=== PATIENT | female | born 1995 | race Caucasian/White ===

== ENCOUNTER 2018-05-06 17:38 | Inpatient (IN) | payer BC ==
[2018-05-06] MEDS ORDERED: Acetaminophen TAB* 325 MG PO PRN (23:33)
[2018-05-06] MEDS ORDERED: Ibuprofen TAB* 600 MG PO PRN (23:33)
[2018-05-06] MEDS ORDERED: Dibucaine 1% 28.35 GM TUBE PR PRN (23:33)
[2018-05-06] MEDS ORDERED: Witch Hazel PAD* JAR TOPICAL PRN (23:33)
[2018-05-06] MEDS ORDERED: Glycerin ADULT SUPP PR PRN (23:33)
--- NOTE | 2018-05-06 23:47 | HP ---
General Information - Reason for Visit SROM with contractions - General Information Maternal Age: 23 Grav: 2 Para: 1 SAB: 0 IEA: 0 Estimated Due Date: 05/09/18 Determined By: LMP Maternal Blood Type and Rh: A Positive - Results this Serology/RPR Result: Non-Reactive Rubella Result: Immune HBsAg Result: Negative HIV Result: Negative GBS Culture Result: Negative Past Medical History Delivery History: Hx Uncomplicated Vaginal Delivery Pertinent Past Medical History: Non-Contributory - migraines Pertinent Past Surgical History: See Records - repair of broken ankle Pertinent Family History: Non-Contributory - Antepartal Records Antepartal Records: Reviewed, Uncomplicated Review of Systems Constitutional: Comfortable CV Complaint: No Respiratory: Shortness of Breath: No Gastrointestinal: No Nausea/Vomiting, Normal Bowel Movement Genitourinary: Leaking Fluid, No Dysuria, No Bleeding Musculoskeletal: No Epigastric Pain, Contractions Neurological: No Headache, No Visual Changes Movement: Normal Exam Allergies/Adverse Reactions: Allergies No Known Allergies Allergy (Verified 05/06/18 18:10) T-98.7, P-75, R-18, O2-100%, BP-114/72 - Measurements Height: 5 ft 7 in Weight: 77.111 kg Weight in lbs: 170.172129 Body Mass Index (BMI): 26.6 Pre- Weight: 61.235 kg Weight Gained This : 35 lbs and 0 ozs - Exam Breast: Breast Exam Deferred CVA: No CVA Tenderness Extremities: No Edema Heart: Normal Rhythm/Heart Sounds HEENT: No Significant Findings Lungs: Clear Bilaterally Rectal: Rectal Exam Deferred Reflexes: DTR 2+ Thyroid: No Thyromegaly - Abdominal Exam Abdomen Exam: Non-Tender, Fundal Height Consistent with Dates - Ultrasound/Biophysical Profile Ultrasound Status: Not Done Targeted Exam Findings See L&D Outpatient Visit Provider Note for Findings: N/A Estimated Weight: 7# Membrane Status: SROM - cervical exam deferred per pt preference and due to SROM Amniotic Fluid Evaluation: Gross Rupture Bleeding/Discharge: None EFM Findings - External Monitor Findings Baseline Heart Rate: 120 External Monitor Findings: Accelerations Present, No Pattern of Variable or Late Decelerations, Variability Moderate, Baseline Stable Contractions: Irregular Contraction Frequency: 8-10 minutes Assessment/Plan - Assessment 23 year old at 39 4/7 weeks gestation with SROM, clear fluid, in early labor, without evidence of acidemia - Plan Plan: Admit - Anticipate Vaginal Delivery - Date/Time of Admission Date of Admission: 05/06/18 Time of Admission: 18:06
--- NOTE | 2018-05-07 02:26 | PROCNOTE ---
[facility] OB: Delivery Note - Delivery A Date of : 05/06/18 Time of : 22:45 [place] Sex: Male Weight at : 3.345 kg Score 1 Minute: 9 Score 5 Minutes: 9 Gestational Age in Weeks and Days at Delivery: 39 Weeks and 4 Days Delivery Method: Spontaneous Vaginal Labor: Spontaneous Did Patient attempt ?: N/A, No Previous Amniotic Fluid: Clear Estimated Blood Loss: 200 Anesthesia/Analgesia: None Delivered By: Dayan Watt - Nursery Level of Nursery: Regular/Bedside - Perineum Perineal Injury: 1st Degree Perineal Repair: By Delivering Practioner - Events Delivery Events of Note: None Apply - Additional Delivery Notes Additional Delivery Notes: Pt admitted to L&D after spontaneous rupture of membranes, will clear fluid. Active labor soon followed, and pr progressed to pull dilation. Pt pushed several times and delivered a male , in OA to [place], Apgars 9 &9. transferred to maternal abdomen, with good spontaneous respiratory effort. Small first degree laceration noted along old scar. Repaired with a single stitch, using absorbable suture with good reapproximation and hemostasis. and mother stable, anticipate normal course.
[2018-05-07 06:42] LABS: ABS Basophils 0.1 10^3/ul (0-0.2); ABS Eosinophils 0 10^3/ul (0-0.6); ABS Lymphocytes 1.5 10^3/ul (1.0-4.8); ABS Neutrophils 10.6 10^3/ul (1.5-7.7); ABS Nucleated RBC 0 10^3/ul; Eosinophil % 0.1 % (0-6); Hematocrit 33 % (35-47); Hemoglobin 11.6 g/dl (12.0-16.0); Lymphocyte % 11.3 % (25-47); Mean Corpuscular HGB Conc 35 g/dl (31-36); Mean Corpuscular Hemoglobin 30 pg (27-31); Mean Corpuscular Volume 86 fL (80-97); Nucleated Red Blood Cells % 0; Platelet Count 161 10^3/ul (150-450); Red Blood Count 3.82 10^6/ul (4.00-5.40); Red Cell Distribution Width 14 % (10.5-15); White Blood Count 13.2 10^3/ul (3.5-10.8)
[2018-05-07] MEDS: Docusate CAP* 100 MG PO SCH ×3 (08:59→21:11)
[2018-05-07] MEDS: Ferrous Gluconate TAB* 324 MG TAB PO SCH ×2 (08:59→21:11)
[2018-05-07 16:33] VITALS: BP 116/80
== END 2018-05-07 23:50 | disposition home or self-care (01) | DRG 560 ==
LOC: MCHOBOUT 17:38 → MCHOB 18:06
PROVIDERS: ADMIT Midwife; ATTEND Midwife
PROC: 4A1HX4Z Monitoring of Products of Conception, Cardiac Electrical Activity, External Approach (ICD-10-PCS; principal; 2018-05-06)
PROC: 10E0XZZ Delivery of Products of Conception, External Approach (ICD-10-PCS; 2018-05-06)
PROC: 0HQ9XZZ Repair Perineum Skin, External Approach (ICD-10-PCS; 2018-05-06)
DX: O70.0 First degree perineal laceration during delivery (principal); Z3A.39 39 weeks gestation of pregnancy; Z37.0 Single live birth
CPT/HCPCS: 36415; 85025; A9270-GY

== ENCOUNTER 2021-04-26 21:50 | Inpatient (IN) ==
[2021-04-26] MEDS ORDERED: Buffered Lidocaine 1% SYRIN 1 ml INTRADERM ONE ×2 (22:12→23:46)
[2021-04-26 23:43] LABS: Urine Benzodiazepine Screen None Detected (None Detect); Urine Cannabinoids Screen None Detected (None Detect); Urine Opiates Screen None Detected (None Detect)
[2021-04-26] MEDS ORDERED: Lactated Ringers 1000 ml BAG 1,000 ML IV SCH (23:45)
[2021-04-26] MEDS ORDERED: Lactated Ringers 1000 ml BAG 1,000 ML IV ONE (23:46)
[2021-04-27] MEDS ORDERED: Witch Hazel PAD JAR TOPICAL PRN (16:05)
[2021-04-27] MEDS ORDERED: Dibucaine 1% OINT 28.35 GM TUBE PR PRN (16:05)
[2021-04-27] MEDS ORDERED: Oxytocin 10 UNITS/ML 1 ML VIAL IM ONE (16:05)
[2021-04-27] MEDS ORDERED: Lactated Ringers 1000 ml BAG 1,000 ML IV SCH (17:00)
[2021-04-28 06:57] LABS: Eosinophil % 0.3 %; Hematocrit 31 % (35-47); Hemoglobin 10.8 g/dL (12.0-16.0); Lymphocyte % 16.4 %; Mean Corpuscular HGB Conc 35 g/dL (31-36); Mean Corpuscular Hemoglobin 30 pg (27-31); Mean Corpuscular Volume 85 fL (80-97); Mean Platelet Volume 9.6 fL (7.4-10.4); Platelet Count 161 10^3/uL (150-450); Red Blood Count 3.62 10^6 /uL (3.70-4.87); Red Cell Distribution Width 14 % (10-15); White Blood Count 12.1 10^3/uL (3.5-10.8)
[2021-04-28 08:20] VITALS: BP 125/63
== END 2021-04-28 16:58 | disposition home or self-care (01) | DRG 560 ==
LOC: MCHOBOUT 21:50 → MCHOB 22:43
PROVIDERS: ADMIT Midwife; ATTEND Midwife